=== PATIENT | male | born 1960 | race African-American/Black ===

== ENCOUNTER 2016-08-18 08:12 | Emergency (ER) | payer SELFPAY ==
[~2016-08-18] VITALS: Ht 165.1 cm; Wt 100.3 kg
[~2016-08-18 08:12] MED LIST: NOHOMEMEDS
[2016-08-18 08:56] LABS: HEMATOCRIT 42.3 % (38.0-50.0); MCH 27.7 PG (29.0-34.0); MCHC 33.1 G/DL (30.0-36.0); MCV 83.6 FL (86-99); MEAN PLAT.VOLUME 8.7 uM^3 (9.0-12.4); PLATELET COUNT 223 K/uL (156-360); RBC DIS.WIDTH-CV 12.6 % (11.8-14.6); RBC DIS.WIDTH-SD 38.3 % (39-53); RED BLOOD COUNT 5.06 M/uL (4.00-5.50); WHITE BLOOD COUNT 5.7 K/uL (4.1-10.2)
[2016-08-18 09:07] LABS: D-DIMER ELISA 0.28 mg/L FEU (< 0.57)
[2016-08-18 09:41] LABS: TROP-I INTERPRETATION NEGATIVE; TROPONIN-I < 0.01 ng/mL (0.0-0.30)
[2016-08-18 09:42] LABS: ALKALINE PHOSPHATASE 65 IU/L (3-129); ANION GAP 8 MEQ/L (2-14); CHLORIDE 109 MEQ/L (99-109); GFR ESTIMATE (CALCULATED) > 59 mL/min/; GLUCOSE 98 mg/dL (70-99); SAMPLE HEMOLYSIS CHECK 0; SAMPLE ICTERIC CHECK 0; SAMPLE LIPEMIA CHECK 0; SODIUM 140 MEQ/L (136-147); TOTAL BILIRUBIN 0.4 MG/DL (0.0-1.0); UREA NITROGEN (BUN) 14 mg/dL (9-23)
[2016-08-18 11:38] LABS: TROP-I INTERPRETATION NEGATIVE; TROPONIN-I < 0.01 ng/mL (0.0-0.30)
[2016-08-18] MEDS ORDERED: LEVAQUIN500 MG PO (12:42)
[2016-08-18 13:02] VITALS: BP 121/80
== END 2016-08-18 13:05 | disposition home or self-care (01) ==
LOC: EME 08:12
PROVIDERS: Nurse Practitioner Family
DX: J18.9 Pneumonia, unspecified organism (principal); R07.1 Chest pain on breathing
CPT/HCPCS: 71020; 71275; 72128; 80053; 84484; 85027; 85379; 93005; 99281; 99284

== ENCOUNTER 2016-10-22 18:28 | Emergency (ER) | payer SELFPAY ==
[~2016-10-22] VITALS: Ht 160 cm; Wt 98.4 kg
[~2016-10-22 18:28] MED LIST changes: +LEVAQUIN500 MG PO
[2016-10-22 21:12] LABS: HEMATOCRIT 42.2 % (38.0-50.0); MCH 27.6 PG (29.0-34.0); MCHC 32.9 G/DL (30.0-36.0); MCV 83.7 FL (86-99); MEAN PLAT.VOLUME 8.8 uM^3 (9.0-12.4); PLATELET COUNT 228 K/uL (156-360); RBC DIS.WIDTH-CV 12.4 % (11.8-14.6); RBC DIS.WIDTH-SD 37.7 % (39-53); RED BLOOD COUNT 5.04 M/uL (4.00-5.50); WHITE BLOOD COUNT 5.4 K/uL (4.1-10.2)
[2016-10-22 21:21] LABS: ANION GAP 7 MEQ/L (2-14); CHLORIDE 106 MEQ/L (99-109); POTASSIUM 3.7 MEQ/L (3.7-5.4); SAMPLE HEMOLYSIS CHECK 0; SAMPLE ICTERIC CHECK 0; SAMPLE LIPEMIA CHECK 1; SODIUM 140 MEQ/L (136-147); TOTAL BILIRUBIN 0.3 MG/DL (0.0-1.0)
[2016-10-22 21:27] LABS: ALKALINE PHOSPHATASE 71 IU/L (3-129); GFR ESTIMATE (CALCULATED) > 59 mL/min/; GLUCOSE 92 mg/dL (70-99); UREA NITROGEN (BUN) 12 mg/dL (9-23)
[2016-10-22] MEDS ORDERED: NAPROSYN500 MG PO (23:00)
[2016-10-22] MEDS ORDERED: NORCO 5/3251 TABLET PO (23:00)
[2016-10-22 23:27] VITALS: BP 132/84
== END 2016-10-22 23:29 | disposition home or self-care (01) ==
LOC: EME 18:28
PROVIDERS: Physician Assistant
DX: R07.89 Other chest pain (principal); R93.8 Abnormal findings on diagnostic imaging of other specified body structures
CPT/HCPCS: 71020; 71260; 72129; 80053; 85027; 99281; 99284